=== PATIENT | male | born 1930 | race Caucasian/White ===

== ENCOUNTER 2018-06-22 06:24 | Day surgery (SDC) | payer MEDICARE, OTHER, MEDICAID ==
[2018-06-22] MEDS ORDERED: PROPOFOL 80 ML (07:53)
[2018-06-22] MEDS ORDERED: LIDOCAINE 2% (SDV) 5 ML INJ (07:53)
== END 2018-06-22 15:12 | disposition home or self-care (01) ==
LOC: GIL 06:24
DX: K29.70 Gastritis, unspecified, without bleeding (principal); D50.9 Iron deficiency anemia, unspecified; D12.6 Benign neoplasm of colon, unspecified; K64.8 Other hemorrhoids; I10 Essential (primary) hypertension; E11.9 Type 2 diabetes mellitus without complications; I25.10 Atherosclerotic heart disease of native coronary artery without angina pectoris
CPT/HCPCS: 43239; 82962; 88305; 88312